=== PATIENT | female | born 1970 | race Caucasian/White ===

== ENCOUNTER 2022-02-14 22:35 | Day surgery (SDC) | payer OTHER ==
[2022-02-14] MEDS ORDERED: HYDROmorphone 1 MG/ML Syringe IVPUSH STA (23:22)
[2022-02-14] MEDS ORDERED: Sodium Chloride 0.9% 10 ML Syringe FLUSH PRN (23:22)
[2022-02-14] MEDS ORDERED: Ondansetron 4 MG/2 ML SDV IVPUSH ONE (23:22)
[2022-02-14] MEDS ORDERED: Sodium Chloride 0.9% 1,000 ML IV SCH (23:30)
[2022-02-15] MEDS ORDERED: Iopamidol 612 MG/ML 100 ML Bottle IVPUSH ONE (00:08)
[2022-02-15] MEDS ORDERED: Ertapenem 1 GM in Sodium Chloride 0.9% 50 ML IV STA (00:15)
[2022-02-15 00:23] LABS: ESTIMATED GFR 67 mL/min (>60)
[2022-02-15] MEDS ORDERED: Sodium Chloride 0.9% 1,000 ML IV SCH (00:30)
[2022-02-15] MEDS: Potassium Chloride 10 MEQ in Premix Bag 1 BAG IV SCH ×4 (01:49→05:21)
[2022-02-15] MEDS ORDERED: HYDROmorphone 1 MG/ML Syringe IVPUSH ONE (01:51)
[2022-02-15] MEDS ORDERED: Lidocaine 1% 50 ML MDV ONE ×2 (07:12→09:35)
[2022-02-15] MEDS ORDERED: Bupivacaine 0.5%/EPINEPHrine 1:200,000 50 ML MDV ONE ×2 (07:12→09:35)
[2022-02-15] MEDS ORDERED: Sugammadex Sodium 200 MG/2 ML VIAL ONE (07:13)
[2022-02-15] MEDS ORDERED: Midazolam 1 MG/ML 2 ML SDV ONE ×2 (07:15→08:33)
[2022-02-15] MEDS ORDERED: fentaNYL 100 MCG/2 ML SDV ONE (07:15)
[2022-02-15] MEDS ORDERED: Propofol 200 MG/20 ML SDV ONE (07:15)
[2022-02-15] MEDS ORDERED: Dexamethasone 4 MG/ML 5 ML MDV ONE (07:16)
[2022-02-15] MEDS ORDERED: Lidocaine 1% 5 ML VIAL ONE (07:16)
[2022-02-15] MEDS ORDERED: Rocuronium 50 MG/5 ML Vial ONE (07:16)
[2022-02-15] MEDS ORDERED: Ondansetron 4 MG/2 ML SDV ONE (07:16)
[2022-02-15] MEDS ORDERED: Ketamine 500 mg/10 ML MDV ONE (08:33)
[2022-02-15] MEDS ORDERED: Sodium Chloride 0.9% 50 ML SDV ONE (08:36)
[2022-02-15] MEDS ORDERED: Sodium Chloride 0.9% 100 ML ONE (09:35)
[2022-02-15] MEDS ORDERED: Sodium Chloride 0.9% 250 ML ONE (09:35)
[2022-02-15] MEDS ORDERED: EPINEPHrine 1 MG/ML SDV ONE (09:44)
[2022-02-15] MEDS ORDERED: Phenylephrine HCl In 0.9% NaCl 1 MG/10 ML Vial ONE (09:44)
[2022-02-15] MEDS ORDERED: ePHEDrine 50 MG/ML SDV ONE (09:44)
[2022-02-15] MEDS ORDERED: Metoclopramide 10 MG/2 ML SDV ONE (10:15)
[2022-02-15] MEDS ORDERED: Lactated Ringers 1,000 ML IV ONE (10:15)
[2022-02-15] MEDS ORDERED: ceFAZolin 2 GM Vial ONE (10:42)
[2022-02-15] MEDS ORDERED: Ketorolac 30 MG/ML SDV ONE (11:20)
[2022-02-15] MEDS ORDERED: fentaNYL 100 MCG/2 ML SDV IVPUSH PRN (11:28)
[2022-02-15] MEDS ORDERED: Ondansetron 4 MG/2 ML SDV IVPUSH PRN (11:28)
[2022-02-15] MEDS ORDERED: HYDROmorphone 0.5 MG/0.5 ML Syringe IVPUSH PRN (11:28)
[2022-02-15] MEDS ORDERED: oxyCODONE 5 MG Tab PO ONE (13:37)
== END 2022-02-15 13:45 | disposition home or self-care (01) ==
LOC: JD.ED 22:35 → JD.SDS 02-15 06:51
PROVIDERS: ATTEND Surgery
DX: K35.33 Acute appendicitis with perforation, localized peritonitis, and gangrene, with abscess (principal); Z90.49 Acquired absence of other specified parts of digestive tract; Z79.899 Other long term (current) drug therapy; Z88.8 Allergy status to other drugs, medicaments and biological substances; Z98.890 Other specified postprocedural states; Z90.710 Acquired absence of both cervix and uterus
CPT/HCPCS: 00840; 36415; 74177; 74177-26; 80053; 81001; 83690; 85025; 86140; 96365; 96366; 96367; 96375; 96376; 99285-25; J0171; J0690; J1100; J1170; J1335; J1885; J2001; J2250; J2405; J2704; J2765; J3010; J3480; J3490; J7030; J7050; J7120; Q9967